=== PATIENT | male | born 1995 | race Caucasian/White ===

== ENCOUNTER 2018-08-22 13:12 | Emergency (ER) | payer OTHER ==
--- NOTE | 2018-08-22 17:47 | ED ---
Complex/Multi-Sys Presentation - HPI Summary HPI Summary: This pt is a 23 y/o male presenting to [facility] [place] c/o intermittent twitching throughout his body for the past 2 months now. Pt reports the twitches are random and sporadic. He states it can sometimes be in his right side or left side and in his arms or legs. Pt denies any fever, chills, headache, erythema of eyes, sore throat, chest pain, SOB, cough, abd pain, nausea, vomiting, dysuria, hematuria, myalgia, edema, rash, or dizziness. Pt has been admitted to [facility] 3 weeks ago for cocaine rehab. He saw Sanaz Hughes and she sent him to the ED. His medications include effexor, lamictal for bipolar disorder, anxiety medications. Denies any recent medication changes. Pt is also on Suboxone. - History Of Current Complaint Chief Complaint: EDGeneral Time Seen by Provider: 08/22/18 17:22 Hx Obtained From: Patient Onset/Duration: Lasting Weeks, Still Present Timing: Weeks Severity Currently: Mild Aggravating Factor(s): nothing Alleviating Factor(s): nothing Associated Signs And Symptoms: Negative: Dizziness, Headache, SOB, Cough, Chest Pain, Edema, Nausea, Vomiting, Abdominal Pain, Fever - Allergies/Home Medications Allergies/Adverse Reactions: Allergies Allergy/AdvReac Type Severity Reaction Status Date / Time No Known Allergies Allergy Verified 08/22/18 13:17 PMH/Surg Hx/FS Hx/Imm Hx Endocrine/Hematology History: Denies: Hx Diabetes Cardiovascular History: Denies: Hx Hypertension Psychiatric History: Reports: Hx Anxiety, Hx Inpatient Treatment - at [facility], Hx Bipolar Disorder, Hx Substance Abuse Infectious Disease History: No Infectious Disease History: Denies: Traveled Outside the [place] in Last 30 Days - Family History Known Family History: Negative: Hypertension, Diabetes - Social History Alcohol Use: None Hx Substance Use: Yes Substance Use Type: Reports: Cocaine, Heroin Review of Systems Negative: Fever, Chills Negative: Erythema Negative: Sore Throat Negative: Chest Pain Negative: Shortness Of Breath, Cough Negative: Abdominal Pain, Vomiting, Nausea Negative: dysuria, hematuria Negative: Myalgia, Edema Negative: Rash Neurological: Other - NEGATIVE: dizziness. POSITIVE: twitches Negative: Headache All Other Systems Reviewed And Are Negative: Yes Physical Exam - Summary Physical Exam Summary: Constitutional: Well-developed, Well-nourished, Alert. (-) Distressed Skin: Warm, Dry HENT: Normocephalic; Atraumatic Eyes: Conjunctiva normal Neck: Musculoskeletal ROM normal neck. (-) JVD, (-) Stridor, (-) Tracheal deviation Cardio: Rhythm regular, rate normal, Heart sounds normal; Intact distal pulses; The pedal pulses are 2+ and symmetric. Radial pulses are 2+ and symmetric. (-) Murmur Pulmonary/Chest wall: Effort normal. (-) Respiratory distress, (-) Wheezes, (-) Rales Abd: Soft. (-) Tenderness, (-) Distension, (-) Guarding, (-) Rebound Musculoskeletal: (-) Edema Lymph: (-) Cervical adenopathy Neuro: Alert, Oriented x3, Strength normal, Cranial nerves II-XII are grossly intact. (-) Dysmetria, (-) Nystagmus, (-) Ataxia by finger to nose testing, (-) Sensory deficit. Psych: Mood and affect Normal Triage Information Reviewed: Yes Vital Signs On Initial Exam: Initial Vitals Temp Pulse Resp BP Pulse Ox 98.0 F 68 19 145/86 97 08/22/18 13:15 08/22/18 13:15 08/22/18 13:15 08/22/18 13:15 08/22/18 13:15 Vital Signs Reviewed: Yes Diagnostics - Vital Signs Vital Signs Temp Pulse Resp BP Pulse Ox 08/22/18 15:19 97.7 F 53 16 135/72 98 08/22/18 13:15 98.0 F 68 19 145/86 97 - Laboratory Result Diagrams: 08/22/18 18:00 08/22/18 18:00 Lab Statement: Any lab studies that have been ordered have been reviewed, and results considered in the medical decision making process. - CT Brain CT CT Interpretation Completed By: Radiologist Summary of CT Findings: IMPRESSION: No acute intracranial abnormality. Dr. Sorensen has reviewed this report. Complex Multi-Symp Course/Dx Assessment/Plan: Pt is a 23 y/o male presenting to [facility] c/o intermittent twitching throughout his body for the past 2 months now. Pt reports the twitches are random and sporadic. He states it can sometimes be in his right side or left side and in his arms or legs. Pt denies any fever, chills, headache , erythema of eyes, sore throat, chest pain, SOB, cough, abd pain, nausea, vomiting, dysuria, hematuria, myalgia, edema, rash, or dizziness. Lab results are unremarkable. Brain CT is negative. There are no signs of generalized seizures, he is nontoxic appearing. Movements can be related to some signs of withdrawal, although they have been present for [address] Marie, neurologist, who reports there is no emergent indication for an EEG. EEG are done on an outpatient basis at [facility]. [facility] staff can order EEG from their facility. EEG staff are currently not in the hospital. Pt will be discharged home with follow up from Dr. Marie neurologist, in 1 week. - Diagnoses Provider Diagnoses: Involuntary movements - Physician Notifications Discussed Care Of Patient With: Rik Marie Time Discussed With Above Provider: 18:03 Instructed by Provider To: Other - Discussed with Dr. Marie, neurologist, who reports there is no emergent indication for an EEG. EEG are done on an outpatient basis at [facility]. Discharge - Sign-Out/Discharge Documenting (check all that apply): Patient Departure - Discharge home Patient Received Moderate/Deep Sedation with Procedure: No - Discharge Plan Condition: Stable Disposition: HOME Patient Education Materials: Electroencephalogram (DC) Referrals: Dinorah Hughes NP [Primary Care Provider] - Rik Marie MD [Medical Doctor] - 1 Week Additional Instructions: [facility] Staff can order EEG from their facility. EEG staff are currently not in the hospital. Follow up with wilian Luiist, in 1 week. RETURN TO THE EMERGENCY DEPARTMENT FOR CHANGING OR WORSENING SYMPTOMS. - Attestation Statements Document Initiated by Scribe: Yes Documenting Scribe: Lorena Maldonado Provider For Whom Scribe is Documenting (Include Credential): Jose F Sorensen MD Scribe Attestation: Lorena Villanueva, scribed for Jose F Sorensen MD on 08/22/18 at 1927. Status of Scribe Document: Ready
[2018-08-22 18:14] LABS: ABS Eosinophils 0.1 10^3/ul (0-0.6); ABS Lymphocytes 1.8 10^3/ul (1.0-4.8); ABS Monocytes 0.6 10^3/ul (0-0.8); ABS Neutrophils 5.5 10^3/ul (1.5-7.7); Eosinophil % 0.8 %; Hematocrit 46 % (42-52); Hemoglobin 15.8 g/dL (14.0-18.0); Lymphocyte % 22.6 %; Mean Corpuscular HGB Conc 34 g/dL (31-36); Mean Corpuscular Hemoglobin 30 pg (27-31); Mean Corpuscular Volume 89 fL (80-94); Mean Platelet Volume 8.7 fL (7.4-10.4); Nucleated Red Blood Cells % 0.1; Platelet Count 207 10^3/uL (150-450); Red Blood Count 5.23 10^6 /uL (4.18-5.48); Red Cell Distribution Width 14 % (10-15)
[2018-08-22 18:28] LABS: ALT 44 U/L (7-52); AST 31 U/L (13-39); Albumin 4.6 g/dL (3.2-5.2); Albumin/Globulin Ratio 1.6 (1-3); Alkaline Phosphatase 67 U/L (34-104); Anion Gap 5 mmol/L (2-11); Blood Urea Nitrogen 12 mg/dL (6-24); CO2 Carbon Dioxide 32 mmol/L (22-32); Calcium 9.8 mg/dL (8.6-10.3); Chloride 101 mmol/L (101-111); EGFR African American 132.2 (>60); EGFR Non-African American 109.3 (>60); Globulin 2.9 g/dL (2-4); Glucose 106 mg/dL (70-100); Potassium 4.8 mmol/L (3.5-5.0); Sodium 138 mmol/L (135-145); Total Protein 7.5 g/dL (6.4-8.9)
[2018-08-22 18:41] LABS: Acetaminophen < 15 mcg/mL; Alcohol < 10 mg/dL (<10); Salicylate < 2.50 mg/dL (<30)
[2018-08-22 18:55] LABS: TSH (Thyroid Stimulating Horm) 1.49 mcIU/mL (0.34-5.60)
[2018-08-22 19:38] VITALS: BP 105/47
[2018-08-22 19:39] LABS: Urine Appearance Cloudy; Urine Bilirubin Negative (Negative); Urine Blood Negative (Negative); Urine Color Yellow; Urine Glucose Negative (Negative); Urine Ketones Negative (Negative); Urine Nitrite Negative (Negative); Urine Protein Negative (Negative); Urine Specific Gravity 1.024 (1.010-1.030); Urine Urobilinogen Negative (Negative)
[2018-08-22 20:00] LABS: Urine Benzodiazepine Screen None Detected (None Detect); Urine Opiates Screen None Detected (None Detect)
== END 2018-08-22 19:41 | disposition home or self-care (01) ==
LOC: ED 13:12
DX: R25.9 Unspecified abnormal involuntary movements (principal)
CPT/HCPCS: 36415; 70450; 80053; 80307; 80320; 80329; 81003; 83735; 84443; 85025; 99283; G0480